=== PATIENT | female | born 1985 | race African-American/Black ===

== ENCOUNTER 2016-12-20 23:11 | Emergency (ER) | payer MEDICAID, OTHER ==
[~2016-12-20] VITALS: Ht 167.6 cm; Wt 84.0 kg
[2016-12-21 01:01] VITALS: BP 113/75
[2016-12-21] MEDS ORDERED: DIPHENHYDRAMINE 25MG CAPSULE PO ONE (01:45)
== END 2016-12-21 02:05 | disposition home or self-care (01) ==
LOC: ER 23:11
DX: R21 Rash and other nonspecific skin eruption (principal)
CPT/HCPCS: 99282; Q0163

== ENCOUNTER 2017-06-12 23:43 | Emergency (ER) | payer MEDICAID ==
[~2017-06-12] VITALS: Ht 170.2 cm; Wt 91.0 kg
[2017-06-13 04:41] LABS: BASOPHILS % 0.1 % (0.0-2.0); EOSINOPHILS % 0.3 % (0.0-5.0); HEMOGLOBIN. 8.2 g/dL (12.0-16.0); LYMPHOCYTES % 31.9 % (20.0-50.0); MEAN CORPUSCULAR HEMOGLOBIN 24.2 pg (28.0-32.0); MEAN CORPUSCULAR VOLUME 73.8 fL (81.0-99.0); MEAN PLATELET VOLUME 6.9 fl (7.4-10.4); MONOCYTES % 8.1 % (2.0-8.0); NEUTROPHILS % 59.6 % (40.0-76.0); PLATELET 324 x1000/uL (130-400); RED BLOOD CELL COUNT 3.39 mill/uL (4.2-5.4); RED CELL DISTRIBUTION WIDTH 14.9 % (11.6-14.6)
[2017-06-13 04:47] LABS: CHLORIDE 107 mEq/L (98-107); INR 1.1; PROTHROMBIN TIME 11.6 sec (9.4-11.6)
[2017-06-13 04:47] LABS: CLARITY URINE CLEAR (CLEAR); COLOR URINE YELLOW (YELLOW); KETONES URINE TRACE (NEGATIVE); LEUKOCYTE ESTERASE URINE TRACE (NEGATIVE); NITRITE URINE NEGATIVE (NEGATIVE); OCCULT BLOOD URINE 2+ (NEGATIVE); PROTEIN URINE NEGATIVE (NEGATIVE); SPECIFIC GRAVITY URINE 1.027 (1.005-1.030); UROBILINOGEN URINE 0.2 E.U./dL (0.2-1.0)
[2017-06-13 05:05] LABS: CARBON DIOXIDE 24 mEq/L (21-32)
[2017-06-13 05:24] VITALS: BP 104/64
== END 2017-06-13 07:01 | disposition home or self-care (01) ==
LOC: ER 23:48
DX: R10.30 Lower abdominal pain, unspecified (principal); N92.0 Excessive and frequent menstruation with regular cycle; D64.9 Anemia, unspecified
CPT/HCPCS: 36415; 80053; 81001; 81025; 85025; 85610; 99284; Z7610

== ENCOUNTER 2018-02-19 20:14 | Emergency (ER) | payer MEDICAID ==
[~2018-02-19] VITALS: Ht 167.6 cm; Wt 95.0 kg
[2018-02-20 01:30] LABS: BASOPHILS % 0.6 % (0.0-2.0); EOSINOPHILS % 0.9 % (0.0-5.0); HEMATOCRIT. 29.8 % (36.0-48.0); HEMOGLOBIN. 9.6 g/dL (12.0-16.0); LYMPHOCYTES % 45.9 % (20.0-50.0); MEAN CORPUSCULAR HEMOGLOBIN 22.9 pg (28.0-32.0); MEAN CORPUSCULAR VOLUME 71.3 fL (81.0-99.0); MEAN PLATELET VOLUME 7.1 fl (7.4-10.4); MONOCYTES % 9.5 % (2.0-8.0); NEUTROPHILS % 43.1 % (40.0-76.0); PLATELET 389 x1000/uL (130-400); RED BLOOD CELL COUNT 4.17 mill/uL (4.2-5.4); RED CELL DISTRIBUTION WIDTH 16.6 % (11.6-14.6)
[2018-02-20 01:33] LABS: CHLORIDE 107 mEq/L (98-107)
[2018-02-20 01:35] LABS: CLARITY URINE CLOUDY (CLEAR); COLOR URINE YELLOW (YELLOW); KETONES URINE NEGATIVE (NEGATIVE); LEUKOCYTE ESTERASE URINE NEGATIVE (NEGATIVE); NITRITE URINE NEGATIVE (NEGATIVE); OCCULT BLOOD URINE 2+ (NEGATIVE); PH URINE 5.5 (4.5-8.0); PROTEIN URINE NEGATIVE (NEGATIVE); SPECIFIC GRAVITY URINE 1.029 (1.005-1.030); UROBILINOGEN URINE 0.2 E.U./dL (0.2-1.0)
[2018-02-20 02:51] VITALS: BP 115/70
== END 2018-02-20 02:52 | disposition home or self-care (01) ==
LOC: ER 20:26
DX: N39.0 Urinary tract infection, site not specified (principal); R42 Dizziness and giddiness
CPT/HCPCS: 36415; 80053; 81003; 81025; 85025; 99284

== ENCOUNTER 2021-05-20 17:54 | Emergency (ER) | payer MEDICAID ==
[~2021-05-20] VITALS: Ht 167.6 cm; Wt 100.0 kg
[~2021-05-20 17:54] MED LIST: SILV50CR31 TP
[2021-05-20 18:52] LABS: CLARITY URINE CLEAR (CLEAR); COLOR URINE YELLOW (YELLOW); KETONES URINE NEGATIVE (NEGATIVE); LEUKOCYTE ESTERASE URINE NEGATIVE (NEGATIVE); NITRITE URINE NEGATIVE (NEGATIVE); OCCULT BLOOD URINE 1+ (NEGATIVE); PH URINE 6.5 (4.5-8.0); PROTEIN URINE TRACE (NEGATIVE); SPECIFIC GRAVITY URINE 1.022 (1.005-1.030); UROBILINOGEN URINE 0.2 E.U./dL (0.2-1.0)
[2021-05-20] MEDS ORDERED: DIPHENHYDRAMINE 50MG CAPSULE PO ONE (19:15)
[2021-05-20] MEDS ORDERED: ONDANSETRON 4MG ODT PO ONE (19:15)
[2021-05-20] MEDS ORDERED: DIPH25CA83 MT (20:34)
[2021-05-20] MEDS ORDERED: ONDA4TAB5 MT (20:34)
[2021-05-20 20:45] VITALS: BP 133/74
== END 2021-05-20 20:46 | disposition home or self-care (01) ==
LOC: ER 17:54
DX: L30.9 Dermatitis, unspecified (principal)
CPT/HCPCS: 81003; 81025; 99283; Q0162; Q0163

== ENCOUNTER 2024-11-06 02:37 | Emergency (ER) | payer MEDICAID, OTHER ==
[~2024-11-06] VITALS: Ht 167.6 cm; Wt 100.0 kg
[~2024-11-06 02:37] MED LIST changes: +DIPH25CA83 MT; +ONDA4TAB5 MT
[2024-11-06 02:51] VITALS: O2SAT 82
[2024-11-06 03:26] VITALS: BP 134/87; PULSE 107; RESP 14; TEMP 36.7; O2SAT 82
== END 2024-11-06 03:28 | disposition home or self-care (01) ==
LOC: ER 02:37
DX: T19.2XXA Foreign body in vulva and vagina, initial encounter (principal); W44.8XXA Other foreign body entering into or through a natural orifice, initial encounter; Y93.89 Activity, other specified; Y92.89 Other specified places as the place of occurrence of the external cause; Y99.8 Other external cause status
CPT/HCPCS: 99284; Z7610